=== PATIENT | male | born 1955 | race Caucasian/White ===

== ENCOUNTER 2018-05-31 18:01 | Observation (INO) | payer MEDICARE, OTHER ==
[~2018-05-31] VITALS: Ht 182.9 cm; Wt 102.7 kg
[2018-05-31] MEDS ORDERED: GLUCOPHAGE1000 MG PO (18:47)
[2018-05-31 19:44] VITALS: BP 157/82; PULSE 106; TEMP 98.5
[2018-06-01] VITALS (17 sets, daily range): BP systolic 130–152; BP diastolic 75–93; PULSE 60–97; TEMP 97.6–98.6
[2018-06-01 09:04] LABS: HEMATOCRIT 43.7 % (42.0-52.0); HEMOGLOBIN 14.6 g/dl (13.5-18.0); MEAN CELL VOLUME 96 fl (80.0-100.0); MEAN CORPUSCULAR HEMOGLOBIN 32 pg (27.0-31.0); MEAN CORPUSCULAR HGB CONC 33 g/dl (33.0-37.0); MEAN PLATELET VOLUME 11.3 fl (7.4-10.4); PLATELET COUNT 136 K/mm3 (130-400); RED BLOOD COUNT 4.55 M/mm3 (4.20-5.60); REDCELL DISTRIBUTION WIDTH-CV 12.7 % (11.5-14.5)
[2018-06-01 09:17] LABS: BLOOD UREA NITROGEN 14 mg/dL (9-20); CALCIUM 8.4 mg/dL (8.4-10.2); CARBON DIOXIDE 25 mmol/L (22-30); CREATININE, serum 0.82 mg/dL (0.66-1.25); GLUCOSE 205 mg/dL (74-106); MAGNESIUM 1.2 mg/dL (1.6-2.3); POTASSIUM 3.8 mmol/L (3.4-5.0); SODIUM 137 mmol/L (137-145)
[2018-06-01 09:19] LABS: CHLORIDE 100 mmol/L (98-107)
[2018-06-01 09:24] LABS: ANION GAP 12 mmol/L (7-16)
[2018-06-01 09:30] LABS: TROPONIN-I < 0.012 ng/mL (0.000-0.034)
[2018-06-01 09:46] LABS: TSH w REFLEX 0.454 uIU/mL (0.465-4.680)
[2018-06-01 10:00] LABS: EOSINOPHIL 3 % (0-4); LYMPHOCYTE 15 % (20.0-51.0); NEUTROPHILS 78 % (42.0-75.2); PLATELET ESTIMATE DECREASED (NORMAL)
[2018-06-01 10:37] LABS: PROTHROMBIN TIME 11.7 SECONDS (9.7-12.8)
[2018-06-01 10:44] LABS: POTASSIUM 3.9 mmol/L (3.4-5.0)
[2018-06-01 11:17] LABS: THYROID STIMULATING HORMONE 0.385 uIU/mL (0.465-4.680)
[2018-06-02 00:25] VITALS: BP 134/76; PULSE 73; TEMP 97.7
[2018-06-02 03:24] VITALS: BP 152/87; PULSE 72; TEMP 97.5
[2018-06-02 07:56] VITALS: BP 171/95; PULSE 70; TEMP 98.5
[2018-06-02 08:42] LABS: BASO # 0.1 (0.0-0.2); BASO % 0.9 % (0.0-2.0); EOS # 0.1 (0.0-0.7); EOS % 2.6 % (0-4.0); GRAN # 3.7 (1.4-6.5); HEMATOCRIT 42.1 % (42.0-52.0); HEMOGLOBIN 14.2 g/dl (13.5-18.0); LYMPH # 0.9 (1.2-3.4); LYMPH % 16.6 % (20.0-51.0); MEAN CELL VOLUME 95 fl (80.0-100.0); MEAN CORPUSCULAR HEMOGLOBIN 32 pg (27.0-31.0); MEAN CORPUSCULAR HGB CONC 34 g/dl (33.0-37.0); MEAN PLATELET VOLUME 10.6 fl (7.4-10.4); MONO # 0.5 (0.1-0.6); MONO % 9.5 % (1.7-9.3); PLATELET COUNT 112 K/mm3 (130-400); RED BLOOD COUNT 4.42 M/mm3 (4.20-5.60); REDCELL DISTRIBUTION WIDTH-CV 12.6 % (11.5-14.5)
[2018-06-02 08:53] LABS: CALCIUM 8.3 mg/dL (8.4-10.2); CREATININE, serum 0.75 mg/dL (0.66-1.25); POTASSIUM 4.2 mmol/L (3.4-5.0)
[2018-06-02] MEDS ORDERED: XARELTO20 MG PO (09:01)
[2018-06-02] MEDS ORDERED: ZESTRIL 5MG5 MG PO (09:02)
[2018-06-02] MEDS ORDERED: LOPRESSOR 225 MG/TAB PO (09:02)
[2018-06-02 09:34] LABS: MUCOUS Present /lpf; PH 5 (5-8); SQUAMOUS EPITHELIAL 0-2 /hpf; URINE APPEARANCE Cloudy; URINE BACTERIA None Seen /hpf; URINE BILIRUBIN Negative (NEGATIVE); URINE BLOOD 3+ (NEGATIVE); URINE COLOR Amber; URINE GLUCOSE Negative (NEGATIVE); URINE KETONE Negative (NEGATIVE); URINE LEUKOCYTE ESTERASE Negative (NEGATIVE); URINE NITRATE Negative (NEGATIVE); URINE PROTEIN(semi-quant) 2+ (NEGATIVE); URINE RBC >50 /hpf; URINE WBC 0-2 /hpf
[2018-06-02 09:37] LABS: COLLECTION METHOD CLEAN CATCH
== END 2018-06-02 11:49 | disposition home or self-care (01) ==
LOC: MEDICAL 18:01
PROVIDERS: Family Medicine; Internal Medicine; Nurse Practitioner
DX: I48.91 Unspecified atrial fibrillation (principal); I50.9 Heart failure, unspecified; E11.9 Type 2 diabetes mellitus without complications; Z79.84 Long term (current) use of oral hypoglycemic drugs; Z82.49 Family history of ischemic heart disease and other diseases of the circulatory system; I07.1 Rheumatic tricuspid insufficiency
CPT/HCPCS: 99222-AI; G0378; G0379; J1650; J1815; J3475; J7030

== ENCOUNTER 2022-05-25 05:17 | Day surgery (SDC) | payer MEDICARE ==
[~2022-05-25] VITALS: Ht 182.9 cm; Wt 97.1 kg
[2022-05-25] VITALS (11 sets, daily range): BP systolic 110–135; BP diastolic 59–85; PULSE 62–97; TEMP 97.3–98.2
[~2022-05-25 05:17] MED LIST: GLUCOPHAGE1000 MG PO; LOPRESSOR 225 MG/TAB PO; XARELTO20 MG PO; ZESTRIL 5MG5 MG PO
[2022-05-25] MEDS ORDERED: MASON NATURAL2000 IU PO (06:05)
[2022-05-25] MEDS ORDERED: OMEGA-3 1000 MG1 CAP PO (06:06)
[2022-05-25] MEDS ORDERED: B-12 500 MCG PO (06:06)
[2022-05-26 00:27] VITALS: BP 135/70; PULSE 85; TEMP 97.4
[2022-05-26 04:35] VITALS: BP 114/57; PULSE 93; TEMP 97.6
[2022-05-26] MEDS ORDERED: LOPRESSOR 225 MG/TAB PO (06:06)
[2022-05-26] MEDS ORDERED: ZESTRIL 5MG5 MG PO (06:07)
[2022-05-26 06:43] LABS: HEMATOCRIT 34.6 % (42.0-52.0); HEMOGLOBIN 11.7 g/dl (13.5-18.0)
[2022-05-26 07:47] VITALS: BP 113/64; PULSE 90; TEMP 97.6
[2022-05-26 12:28] VITALS: BP 107/52; PULSE 88; TEMP 97.5
== END 2022-05-26 14:57 | disposition home or self-care (01) ==
LOC: SURG 05:17 → SDCO 05:17 → SURG 09:00 → SDCO 05-26 14:57
PROVIDERS: Physician Assistant
DX: M17.12 Unilateral primary osteoarthritis, left knee (principal); I10 Essential (primary) hypertension; E11.9 Type 2 diabetes mellitus without complications; Z79.84 Long term (current) use of oral hypoglycemic drugs; Z79.01 Long term (current) use of anticoagulants
CPT/HCPCS: OP; A4314; A9284; C1713; C1776; J0690; J1100; J1885; J2250; J2370; J2704; J2795; J7120